=== PATIENT | female | born 1995 | race Caucasian/White ===

== ENCOUNTER 2023-10-16 15:10 | Inpatient (IN) | payer OTHER ==
[~2023-10-16] VITALS: Ht 172.7 cm; Wt 99.1 kg
[~2023-10-16 15:10] MED LIST: AMOXICILLIN 8751 TAB PO; ANTIVERT 25MG25 MG PO; DEPO-PROVER150 MG/M1 IM; Penicillin G Potassium 2,500,000 UNITS in NS 100 ML IV SCH
[2023-10-16] MEDS ORDERED: Terbutaline 1 MG/ML 1 ML AMP SQ PRN (21:45)
[2023-10-16] MEDS ORDERED: LR & Oxytocin 500 ML IV SCH (21:45)
[2023-10-16] MEDS ORDERED: miSOPROStol 25 MCG (1/4th of 100 MCG) TAB VG SCH (21:45)
[2023-10-16] MEDS ORDERED: LR 1,000 ML IV SCH ×2 (21:45)
[2023-10-16] MEDS ORDERED: Penicillin G Potassium 5,000,000 UNITS in NS 100 ML IV ONE (21:45)
[2023-10-16] MEDS ORDERED: miSOPROStol 25 MCG (1/4th of 100 MCG) TAB VG ONE (21:45)
[2023-10-16 22:30] VITALS: BP 146/89; PULSE 80; TEMP 97.9
[2023-10-16 23:00] VITALS: BP 145/74; PULSE 75
--- NOTE | 2023-10-16 23:00 | NUR ---
Pt is a G1 L0 pt of Dr Harris, 37.3 weeks arrives ambulatory to unit accompanied by spouse and staff. Shown to room and instructed to change into gown. POC and IOL plan discussed with pt and spouse as pt is placed on the monitors and vitals obtained. Questions asked and answered.
[2023-10-16 23:30] VITALS: BP 139/83; PULSE 61
[2023-10-17] VITALS (66 sets, daily range): BP systolic 104–178; BP diastolic 49–103; PULSE 57–111; TEMP 98–98.6
[2023-10-17] MEDS ORDERED: PRENATAL TABLET PO (00:32)
[2023-10-17] MEDS ORDERED: MASON NATURAL2000 IU PO (00:33)
[2023-10-17 00:34] LABS: ALBUMIN 2.5 g/dL (3.5-5.0); BILIRUBIN,TOTAL 0.2 mg/dL (0.2-1.2); CALCIUM 9.8 mg/dL (8.4-10.2); CREATININE, serum 0.72 mg/dL (0.57-1.11); POTASSIUM 3.7 mEq/L (3.5-4.5); TOTAL PROTEIN 6.1 g/dl (6.2-8.1)
[2023-10-17] MEDS ORDERED: NATURAL MAGNES200 MG PO (00:36)
[2023-10-17] MEDS ORDERED: NORMODYNE200 MG PO (00:43)
[2023-10-17] MEDS ORDERED: TRANDATE 100MG100 MG PO (00:45)
[2023-10-17 00:57] LABS: BASO % 0.3 % (0.0-2.0); EOS # 0.1 K/mm3 (0.0-0.7); EOS % 0.9 % (0.0-4.0); GRAN # 7.1 K/mm3 (1.4-6.5); GRAN % 67.4 % (42.2-75.2); HEMATOCRIT 38.2 % (37.0-47.0); HEMOGLOBIN 12.6 g/dl (12.5-16.0); LYMPH # 2.5 K/mm3 (1.2-3.4); LYMPH % 23.8 % (20.0-51.0); MEAN CELL VOLUME 90 fl (80.0-100.0); MEAN CORPUSCULAR HEMOGLOBIN 30 pg (27-31); MEAN CORPUSCULAR HGB CONC 33 g/dl (33.0-37.0); MEAN PLATELET VOLUME 11.1 fl (7.4-10.4); MONO # 0.8 K/mm3 (0.1-0.6); MONO % 7.3 % (1.7-9.3); PLATELET COUNT 303 K/mm3 (130-400); RED BLOOD COUNT 4.24 M/mm3 (4.10-5.30); REDCELL DISTRIBUTION WIDTH-CV 13.5 % (11.5-14.5)
--- NOTE | 2023-10-17 01:30 | NUR ---
QUESTIONABLE VARIBLES OBSERVED ON THIS TRACING PERIOD, INTERUPTIONS NOTED DURING TRACING BY THIS RN. MONITORS ADJUSTED AND PT REPOSITIONED.
--- NOTE | 2023-10-17 04:16 | NUR ---
Interuptions during this tracing time frame due to maternal position. RN at the bedside attempting to obtain heart tones. RN unable to determine decels during this tracing due to poor tracing at times. RN remains at bedside once heart tones have been obtained.
--- NOTE | 2023-10-17 06:00 | NUR ---
RN at the bedside and inquires if pt would like to shower and have a small snack before starting the Pitocin infusion. Pt replies that she would like to shower so RN takes pt off the monitors, sets up the bathroom and gets a snack for the patient.
--- NOTE | 2023-10-17 06:15 | NUR ---
PT ON INTERMITTENT MONITORING, PT VS STABLE AND NOT REPORTING PAIN, PT RESTING BUT EASY TO AROUSE, AWAKE AND ALERT X3. PT SPOUSE SUPPORTIVE AT BEDSIDE.
--- NOTE | 2023-10-17 06:30 | NUR ---
REPORT GIVEN TO THIS RN FROM PCR.PRIJUL. PT VS STABLE, NOT REPORTING ANY PAIN. PT SPOUSE SUPPORTIVE AT BEDSIDE.
--- NOTE | 2023-10-17 10:30 | NUR ---
UNABLE TO TRACE ACCELERATIONS OR POSSIBLE DECELERATIONS FOR HEART RATE DUE TO MATERNAL POSITION AND HABITUS. THIS RN AT PT BEDSIDE AND DID NOT HEAR ANY AUDIBLE DECELERATIONS, PT VS STABLE AND AWAKE AND ALERT X3. PT FREQUENTLY MOVING BODY POSITION TO ALIVIATE CONTRACTION PAIN, THIS RN WITH PT ATTEMPTING TO TRACE ACCURATE EFM AND TOCO. PT SPOUSE AND PT MOTHER SUPPORTIVE AT BEDSIDE.
--- NOTE | 2023-10-17 11:30 | NUR ---
UNABLE TO TRACE EFM AND TOCO MONITOR DUE TO PT POSITION AND HABITUS. THIS RN AT PT BEDSIDE PALPATING PT CONTRACTIONS WHILE PT STANDING AT HER BEDSIDE. PT VS STABLE AND AWAKE AND ALERT X3. FHR AUDIBLE BASELINE AROUND 130'S, PT O2 SATURATION MONITOR PLACED TO MONITOR MATERNAL HEART RATE, PT HEART RATE STABLE. PT SPOUSE SUPPORTIVE AT BEDSIDE.
[2023-10-17] MEDS ORDERED: ROPivacaine PF 0.2% 200 ML IV ONE (11:57)
--- NOTE | 2023-10-17 12:00 | NUR ---
1200 JORGE CLINICAL INFORMATICS SPECIALIST AT PT BEDSIDE DISCUSSING EPIDURAL PROCEDURE, PT VERBALLY UNDERSTANDING AND CONSENTING, PT VS STABLE AND AWAKE AND ALERT X3. PT SITTING ON EDGE OF BED FACING WINDOW, DUE TO MATERNAL POSITION AND HABITUS FHR UNABLE TO TRACE. PT O2 SATURATION MONITOR PLACED ON MATERNAL FINGER. 1210 TEST DOSE ADMINISTERED PER JORGE CLINICAL INFORMATICS SPECIALIST, PT TOLERATED WELL. PT SPOUSE AND PT MOTHER SUPPORTIVE AT BEDSIDE. 1220 PT REPOSITIONED COMFORTABLY WEDGE LEFT, PT VS STABLE AND AWAKE AND ALERT X3, PT REPORTING PAIN IS "NOT BAD BEFORE." THIS RN REMAINS AT BEDSIDE TO ASSESS VITAL SIGNS.
--- NOTE | 2023-10-17 12:32 | NUR ---
1232 RECURRENT LATE DECELERATIONS OCCURING PER HEART RATE MONITOR, THIS RN AT PT BEDSIDE TO CHANGE PT POSITION AND BEGAN FLUID BOLUS. 1239 SVE 7/90/0 PER THIS RN. PT REPOSITIONED WEDGE RIGHT DUE TO RECURRENT LATE DECELERATIONS. 1245 PT REPOSITIONED LEFT LATERAL PER THIS RN DUE TO LATE DECELERATIONS IN HEART RATE. PT VS STABLE, FHR BASELNE WITHIN NORMAL LIMITS 135'S AND MODERATE VARIABILITY. PT AWAKE AND ALERT X3 AND SPOUSE SUPPORTIVE AT BEDSIDE. PCR.COLMAL ASSISTING THIS RN AT PT BEDSIDE.
[2023-10-17] MEDS ORDERED: Naloxone 0.4 MG/ML VIAL IV PRN ×3 (13:00→18:45)
[2023-10-17] MEDS ORDERED: ePHEDrine 50 MG/10 ML VIAL IV PRN ×2 (13:00)
[2023-10-17] MEDS ORDERED: Ondansetron 4 MG/2 ML VIAL IV PRN ×2 (13:00)
[2023-10-17] MEDS ORDERED: diphenhydrAMINE 25 MG CAP PO PRN ×2 (13:00)
[2023-10-17] MEDS ORDERED: diphenhydrAMINE 50 MG/ML 1 ML VIAL IV PRN ×2 (13:00)
--- NOTE | 2023-10-17 13:15 | NUR ---
UNABLE TO TRACE PT CONTRACTIONS DUE TO MATERNAL POSITION AND HABITUS, THIS RN AT PT BEDSIDE ATTEMPTING TO TRACE ON MONITOR AND PALPATE. PT REPORTS NOT FEELING ANY CONTRACTION "TIGHTNESS OR PAIN." PT VS STABLE, FHR BASELINE 135'S WITH ACCELERATIONS AND NO DECELERATIONS. PT SPOUSE SUPPORTIVE AT BEDSIDE.
--- NOTE | 2023-10-17 14:00 | NUR ---
UNABLE TO TRACE PT CONTRACTIONS DUE TO MATERNAL POSITION AND HABITUS, THIS RN AT PT BEDSIDE ATTEMPTING TO TRACE AND PALPAPTE PT FUNDUS FOR FIRMNESS. PT VS STABLE, FHR STABLE.
--- NOTE | 2023-10-17 18:09 | NUR ---
1445 SVE 10/100/0 PER PCR.COLMATILDA. THIS RN NOTIFIES , ORDERS TO BEGIN PUSHING WITH PT AND NOTIFY HER WHEN NEEDED. 1450 PT ROOM SET FOR DELIVERY AND PT BEGINS PUSHING WITH THIS RN AND PT SPOUSE SUPPORTIVE AT BEDSIDE. 1452 PITOCIN AT 8ML/HR, PT TOLERATING PUSHING WELL. FHR BASELINE 130'S AND PT VS STABLE. 1500 LATE DECELERATIONS OBSERVED ON MONITOR WITH PUSHING, PT POSITION CHANGED TO WEDGE LEFT AND RESUMED PUSHING. FLUID BOLUS BEGUN PER THIS RN. 1520 PT TOLERATING PUSHING, PT ADMINISTERED 3RD DOSE OF PEN G PER PROTOCOL PER THIS RN. PITOCIN INCREASED TO 10ML/HR. PT PUSHING ON BACK WITH STIRRUPS. PT SPOUSE SUPPORTIVE AT BEDSIDE. 1610 PITOCIN STOPPED AND TURNED OFF AT 12ML/HR DUE TO PROLONGED LATE DECELERATIONS. NOTIFIED AND PCR.COLMAL AT BEDSIDE WITH THIS RN TO ASSIST WITH POSITION CHANGES AND SVE. PT TURNED TO LEFT LATERAL AND PAUSED PUSHING TO LET FHR RETURN TO NORMAL BASELINE. PT TOLERATING WELL AND VERBALLY UNDERSTANDING. 1621 AFTER FHR BASELINE 140'S PITOCIN RESUMED AT 6ML/HR PER ORDERS. PT RESUMED PUSHING AND TOLERATING WELL, PT VS STABLE AND AWAKE AND ALERT X3. 1645 PT PAUSED PUSHING PER ORDERS. PT REPOSITIONED SITTING UPRIGHT IN CHAIR POSITION. PT VS STABLE, FHR BASELINE 140'S WITH ADEQUATE ACCELS, NO DECELS, MODERATE VARIABILITY. PT AWAKE AND ALERT X3. 1715 PT RESUMED PUSHING PER ORDERS IN STIRRUP POSITION. PITOCIN INCREASED TO 10ML/HR. PT TOLERATING PUSHING WELL, PT VS STABLE AND AWAKE AND ALERT X3. PT SPOUSE SUPPORTIVE AT BEDSIDE. THIS RN REMAINS AT PT BEDSIDE TO ASSESS AND HELP GUIDE PT THROUGH PUSHING AND ADDITIONAL QUESITONS. 1742 PT STRAIGHT CATHETER PER , 75ML OF URINE OUT AT THIS TIME. PT RESUMES PUSHING WITH CONTRACTIONS AND TOLERATING PUSHING WELL. PT VS STABLE 1752 DISCUSSING VACUUM ASSIST DELIVERY AND PT VERBALLY UNDERSTANDING AND CONSENT TO VACUUM ASSIST WITH PT PUSHING. 1755 VACUUM ON BABY PT PUSHES PER , VACUUM OFF 1756 AFTER PT DONE PUSHING, NO POP OFFS AT THIS TIME. PT TOLERATING PUSHING WELL. 1800 PT PUSHING WITH VACUUM ASSIST PER , POP OFF OF VACUUM OCCURED AT 180 180 VACUUM POP OFF NUMBER 2 OCCURED 180 DISCUSSING EPISIOTOMY AND PT VERBALLY UNDERSTANDING AND CONSENT "I TRUST YOU ." EPISIOTOMY CUT PER AT 180, VACCUM APPLIED TO BABY TOP OF HEAD AND ASSISTED DELIVERY AT 180. PLACED ON MATERNAL CHEST AND DELAYED CORD CLAMP PER . CORD CLAMPED AND CUT AFTER CORD BLOOD STOPPED PULSATING AROUND 90SECONDS. 1813 PLACENTA SPONTANEOUS PER . 2ND DEGREE AND EPISIOSTOMY REPAIR BEGUN PER . PT FUNDUS FIRM AT UMBILICUS, VAGINAL BLEEDING SCANT, PT VS STABLE. PITOCIN BEGUN PER AND PROTOCOL. PT ROOM CLEANED AFTER DELIVERY AND ICE PAD PACK PLACED ON PERINEUM. PT REPOSITIONED COMFORTABLY AND REPORTS "NOT FEELING PAIN AT ALL RIGHT NOW." THIS RN GIVES REPORT TO [email or web address].
[2023-10-17] MEDS ORDERED: Phenylephrine/Mineral Oil/Petrolatum 57 GM TUBE RC PRN (18:45)
[2023-10-17] MEDS ORDERED: Loratadine 10 MG TAB PO PRN (18:45)
[2023-10-17] MEDS ORDERED: Measles/Mumps/Rubella Virus Vaccine Live w Diluent 0.5 ML VIAL SQ SCH (18:45)
[2023-10-17] MEDS ORDERED: Magnes Hydrox (MOM) 80 MG/ML 30 ML CUP PO PRN (18:45)
[2023-10-17] MEDS ORDERED: Witch Hazel 50% Pads Bulk TUB TP PRN (18:45)
[2023-10-17] MEDS ORDERED: Mag/Al Hydrox/Simeth Susp 30 ML CUP PO PRN (18:45)
[2023-10-17] MEDS ORDERED: Ibuprofen 800 MG TAB PO SCH (19:00)
[2023-10-17] MEDS ORDERED: Acetaminophen 500 MG TAB PO SCH (19:00)
[2023-10-17] MEDS ORDERED: traZODone 50 MG TAB PO PRN (21:00)
--- NOTE | 2023-10-17 21:15 | NUR ---
Pt able to lift both legs for greater then 5 seconds. Pt assisted to edge of bed. Epidural catheter removed without difficulty. Pt ambulatory to restroom, standby assist. Pt unable to void at this time. Encouraged pt to continue to drink plenty of fluids and we will reassess. Dania explained and provided. Pt wheeled down to 219 and oriented to room. Call light within reach.
[2023-10-18 01:45] VITALS: BP 124/70; PULSE 82; TEMP 98
[2023-10-18 05:00] VITALS: BP 150/95; PULSE 77; TEMP 97.7
[2023-10-18 08:00] VITALS: BP 128/79; PULSE 92; TEMP 98
[2023-10-18] MEDS ORDERED: Sennosides/Docusate 8.6-50 MG TAB PO SCH (08:00)
[2023-10-18] MEDS ORDERED: IBU800 M1 PO (09:00)
--- NOTE | 2023-10-18 13:17 | NUR ---
Initial visit; Parents thanked Bending Shed Worker for looking in on them and offering congratulations and God's blessings for the of their daughter. Bending Shed Worker thanked family for choosing [facility]. They stated that they have had a very good experience here.
[2023-10-18 17:00] VITALS: BP 152/88; PULSE 142; TEMP 98.3
[2023-10-18 19:30] VITALS: BP 140/87; PULSE 77; TEMP 97.7
[2023-10-19] MEDS ORDERED: Labetalol 100 MG TAB PO SCH (09:00)
[2023-10-19 10:20] VITALS: BP 134/89; PULSE 76; TEMP 98.4
[2023-10-19 17:00] VITALS: BP 143/93; PULSE 79; TEMP 98.1
[2023-10-20 08:00] VITALS: BP 146/99; PULSE 88; TEMP 98.7
== END 2023-10-20 11:33 | disposition home or self-care (01) | DRG 806 ==
LOC: OB 15:10 → LDR 21:30 → OB 21:30
PROVIDERS: Obstetrics & Gynecology; ADMIT Student in an Organized Health Care Education/Training Program
PROC: 10D07Z6 Extraction of Products of Conception, Vacuum, Via Natural or Artificial Opening (ICD-10-PCS; principal; 2023-10-17)
PROC: 0KQM0ZZ Repair Perineum Muscle, Open Approach (ICD-10-PCS; 2023-10-17)
PROC: 10907ZC Drainage of Amniotic Fluid, Therapeutic from Products of Conception, Via Natural or Artificial Opening (ICD-10-PCS; 2023-10-17)
PROC: 3E033VJ Introduction of Other Hormone into Peripheral Vein, Percutaneous Approach (ICD-10-PCS; 2023-10-17)
PROC: 0W8NXZZ Division of Female Perineum, External Approach (ICD-10-PCS; 2023-10-17)
PROC: 3E0P7VZ Introduction of Hormone into Female Reproductive, Via Natural or Artificial Opening (ICD-10-PCS; 2023-10-17)
DX: O36.5930 Maternal care for other known or suspected poor fetal growth, third trimester, not applicable or unspecified (principal); O10.92 Unspecified pre-existing hypertension complicating childbirth; Z37.0 Single live birth; Z3A.37 37 weeks gestation of pregnancy; O75.81 Maternal exhaustion complicating labor and delivery; O76 Abnormality in fetal heart rate and rhythm complicating labor and delivery; O70.1 Second degree perineal laceration during delivery; O99.824 Streptococcus B carrier state complicating childbirth; R51.9 Headache, unspecified; O99.892 Other specified diseases and conditions complicating childbirth; Z22.322 Carrier or suspected carrier of Methicillin resistant Staphylococcus aureus; Z23 Encounter for immunization
CPT/HCPCS: J2540; J2590; J2795; J7120